=== PATIENT | male | born 1975 | race African-American/Black ===

== ENCOUNTER 2019-03-19 12:30 | Emergency (ER) | payer MEDICAID, MEDICARE ==
[~2019-03-19] VITALS: Ht 182.9 cm; Wt 85.0 kg
[2019-03-19 12:45] VITALS: BP 142/89
[2019-03-19] MEDS: LORAZEPAM 2MG/ML CPJ IM ONE (12:45)
== END 2019-03-19 14:47 | disposition home or self-care (01) ==
LOC: ER 12:30
DX: F15.10 Other stimulant abuse, uncomplicated (principal); F31.9 Bipolar disorder, unspecified; F20.9 Schizophrenia, unspecified
CPT/HCPCS: 99283

== ENCOUNTER 2019-03-19 18:55 | Emergency (ER) | payer MEDICARE ==
[~2019-03-19] VITALS: Ht 185.4 cm; Wt 86.0 kg
[2019-03-19 18:59] VITALS: BP 149/95
== END 2019-03-19 19:51 | disposition left against medical advice (07) ==
LOC: ER 18:55
DX: F10.129 Alcohol abuse with intoxication, unspecified (principal); Z53.21 Procedure and treatment not carried out due to patient leaving prior to being seen by health care provider

== ENCOUNTER 2019-03-19 22:12 | Emergency (ER) | payer MEDICARE ==
[~2019-03-19] VITALS: Ht 185.4 cm; Wt 91.0 kg
[2019-03-19 22:24] VITALS: BP 162/96
== END 2019-03-19 23:38 | disposition left against medical advice (07) ==
LOC: ER 22:35
DX: R53.1 Weakness (principal); Z53.21 Procedure and treatment not carried out due to patient leaving prior to being seen by health care provider

== ENCOUNTER 2019-08-10 11:02 | Emergency (ER) | payer MEDICAID, MEDICARE ==
[~2019-08-10] VITALS: Ht 188 cm; Wt 79.0 kg
[2019-08-10 11:09] VITALS: BP 135/78
== END 2019-08-10 11:43 | disposition home or self-care (01) ==
LOC: ER 11:02
DX: Z00.00 Encounter for general adult medical examination without abnormal findings (principal); F12.10 Cannabis abuse, uncomplicated
CPT/HCPCS: 99283

== ENCOUNTER 2019-08-21 13:56 | Emergency (ER) | payer MEDICAID ==
[~2019-08-21] VITALS: Ht 177.8 cm; Wt 89.0 kg
[2019-08-21] MEDS ORDERED: SODIUM CHLORIDE 0.9% 1,000 ML IV ONE (14:07)
[2019-08-21] MEDS ORDERED: LORAZEPAM 2MG/ML CPJ IM STA (14:16)
[2019-08-21] MEDS ORDERED: DIPHENHYDRAMINE 50MG/ML VIAL IM STA (14:16)
[2019-08-21] MEDS ORDERED: HALOPERIDOL LACTATE 5MG/ML VIAL IM STA (14:16)
[2019-08-21 14:46] LABS: BASOPHILS % 0.5 % (0.0-2.0); HEMATOCRIT. 36.6 % (42.0-52.0); HEMOGLOBIN. 12.9 g/dL (14.0-18.0); MEAN CORPUSCULAR HEMOGLOBIN 27.9 pg (28.0-32.0); MEAN CORPUSCULAR VOLUME 79.6 fL (80.0-94.0); MEAN PLATELET VOLUME 7.3 fl (7.4-10.4); MONOCYTES % 5.4 % (2.0-8.0); NEUTROPHILS % 84.1 % (40.0-76.0); PLATELET 424 x1000/uL (130-400); RED CELL DISTRIBUTION WIDTH 14.5 % (11.6-14.6)
[2019-08-21 14:50] LABS: CHLORIDE 106 mEq/L (98-107)
[2019-08-21 14:55] LABS: ETHANOL BLOOD 21 mg/dL
[2019-08-21 15:09] LABS: CLARITY URINE CLEAR (CLEAR); COLOR URINE DARK YELLOW (YELLOW); KETONES URINE 1+ (NEGATIVE); LEUKOCYTE ESTERASE URINE TRACE (NEGATIVE); NITRITE URINE NEGATIVE (NEGATIVE); OCCULT BLOOD URINE NEGATIVE (NEGATIVE); PH URINE 5.5 (4.5-8.0); PROTEIN URINE TRACE (NEGATIVE); SPECIFIC GRAVITY URINE 1.037 (1.005-1.030)
[2019-08-21 15:24] LABS: *AMPHETAMINES SCREEN URINE PRESUMTIVE POSITIVE (NEGATIVE); CANNABINOID URINE SCREEN PRESUMTIVE POSITIVE (NEGATIVE); METHADONE URINE SCREEN NEGATIVE (NEGATIVE); PHENCYCLIDINE URINE SCREEN NEGATIVE (NEGATIVE)
[2019-08-21 15:25] LABS: *BARBITURATES SCREEN URINE NEGATIVE (NEGATIVE)
[2019-08-21 15:27] LABS: OPIATES URINE SCREEN NEGATIVE (NEGATIVE)
[2019-08-21 15:28] LABS: *BENZODIAZEPINES SCREEN URINE NEGATIVE (NEGATIVE); *COCAINE SCREEN URINE NEGATIVE (NEGATIVE)
[2019-08-21 20:57] VITALS: BP 119/69
== END 2019-08-21 22:30 | disposition home or self-care (01) ==
LOC: ER 14:05
DX: F15.159 Other stimulant abuse with stimulant-induced psychotic disorder, unspecified (principal); F10.129 Alcohol abuse with intoxication, unspecified; Y90.1 Blood alcohol level of 20-39 mg/100 ml; F91.8 Other conduct disorders; R45.1 Restlessness and agitation; M25.531 Pain in right wrist; R03.0 Elevated blood-pressure reading, without diagnosis of hypertension; F12.90 Cannabis use, unspecified, uncomplicated; Z78.1 Physical restraint status
CPT/HCPCS: 36415; 80053; 80305; 80320; 81003; 85025; 96372; 99285; J1200; J1630; J2060; J7030; G0480